=== PATIENT | female | born 2000 | race African-American/Black ===

== ENCOUNTER 2019-02-09 00:02 | Emergency (ER) | payer OTHER ==
[~2019-02-09] VITALS: Ht 165.1 cm; Wt 62.3 kg
[2019-02-09 00:06] VITALS: BP 102/64
== END 2019-02-09 01:16 | disposition home or self-care (01) ==
LOC: ED 00:45
DX: B34.9 Viral infection, unspecified (principal); F12.90 Cannabis use, unspecified, uncomplicated
CPT/HCPCS: 99281